=== PATIENT | male | born 1940 | race Caucasian/White ===

== ENCOUNTER 2016-06-10 13:30 | Emergency (ER) | payer MEDICARE, OTHER ==
[~2016-06-10] VITALS: Wt 86.4 kg
[2016-06-10 14:04] LABS: ADD SCAN DIFF NO
[2016-06-10 14:08] LABS: BASOPHILS % 0.2 % (0.0-2.0); EOSINOPHILS # 0.4 10^3/ul (0.0-0.5); EOSINOPHILS % 4.8 % (0.0-7.0); HEMATOCRIT 35.8 % (42.0-52.0); HEMOGLOBIN 11.9 g/dl (14.0-18.0); LYMPHOCYTES # 1.7 10^3/ul (0.8-2.9); LYMPHOCYTES % 20.5 % (15.0-51.0); MEAN CORPUSCULAR HEMOGLOBIN 31.8 pg (29.0-33.0); MEAN CORPUSCULAR HGB CONC 33.2 g/dl (32.0-37.0); MEAN CORPUSCULAR VOLUME 95.7 fl (82.0-101.0); MEAN PLATELET VOLUME 10.1 fl (7.4-10.4); MONOCYTE # 0.8 10^3/ul (0.3-0.9); MONOCYTES % 9.5 % (0.0-11.0); NEUTROPHIL # 5.2 10^3/ul (1.6-7.5); NEUTROPHILS % 64.5 % (39.0-77.0); PLATELET COUNT 215 10^3/UL (140-415); RED BLOOD COUNT 3.74 10^6/ul (4.70-6.10); RED CELL DISTRIBUTION WIDTH 14.3 % (11.5-14.5); WHITE BLOOD COUNT 8.1 10^3/ul (4.8-10.8)
[2016-06-10 14:19] LABS: ALBUMIN 3.8 g/dl (3.3-4.9); CHLORIDE 105 mmol/L (97-110)
--- NOTE | 2016-06-10 14:19 | RADRPT ---
PROCEDURE: XR Chest. CLINICAL INDICATION: Abdomen pain. TECHNIQUE: Single frontal view. COMPARISON: None. FINDINGS: There is mild linear atelectasis in the left mid and lower lung zones. The lungs are otherwise chanel r. The heart is enlarged. Calcification is present in the aorta consistent with atherosclerosis. Ther e are sternal wires and mediastinal clips. There is no pleural effusion. There is no pneumothorax. IMPRESSION: 1. Mild linear atelectasis in the left mid and lower lung zones. 2. Cardiomegaly and atherosclerosis. 3. Previous median sternotomy. 4. Otherwise normal chest x-ray. RPTAT: QQ .Orlin Kaba MD, MD Date Time Electronically viewed and signed by .Orlin Kaba MD, MD on 06/10/2016 14:19 .R/
[2016-06-10 14:20] LABS: POTASSIUM 3.9 mmol/L (3.5-5.1); SODIUM 140 mmol/L (135-144)
[2016-06-10 14:22] LABS: ALANINE AMINOTRANSFERASE 25 IU/L (13-69); ALBUMIN/GLOBULIN RATIO 1.35; ALKALINE PHOSPHATASE 103 IU/L (42-121); ANION GAP 16 (8-16); ASPARTATE AMINO TRANSFERASE 22 IU/L (15-46); BILIRUBIN,INDIRECT 0.4 mg/dl (0-1.1); BILIRUBIN,TOTAL 0.4 mg/dl (0.2-1.3); BLOOD UREA NITROGEN 22 mg/dl (7-20); CARBON DIOXIDE 23 mmol/L (21-31); CREATININE 1.14 mg/dl (0.61-1.24); GLUCOSE 130 mg/dl (70-220); TOTAL PROTEIN 6.6 g/dl (6.1-8.1)
[2016-06-10 14:23] LABS: CALCIUM 8.8 mg/dl (8.4-10.2)
[2016-06-10 14:31] LABS: B-TYPE NATRIURETIC PEPTIDE 314 PG/ML (0-450)
[2016-06-10 14:35] LABS: TROPONIN-I < 0.012 ng/ml (0.00-0.12)
[2016-06-10] MEDS ORDERED: SOD CHLORIDE 0.9% 500 ML IV ONE (15:00)
--- NOTE | 2016-06-10 15:01 | ERD ---
ER Documentation Chief Complaint Date/Time DATE: 06/10/16 TIME: 14:59 Chief Complaint BIB ALS CC SYNCOPAL EPISODE W + ORTHOSTATS HPI 75-year-old man brought in by EMS for near syncopal episode while exiting his vehicle. He was helped down to the ground and family members who are at his side state he did not lose full consciousness. They say he did take an extra dose of his antihypertensive medications last night and that he did experience a syncopal episode just 3 months ago and he was admitted and a full inpatient workup for 3 days was unremarkable. They also state the patient does not drink enough water during the day. Patient denies dysuria or increased urinary frequency. Patient denies recent opioid use, no fevers or chills, no chest pain or shortness of breath, no headache or blurry vision. Patient was transported here by EMS without further complications. ROS All systems reviewed and are negative except as per history of present illness. Medications Home Meds Reported Medications Lubiprostone* (Amitiza*) 24 Mcg Capsule, 24 MCG PO DAILY, #60 CAP 06/10/16 Gabapentin* (Gabapentin*) 100 Mg Capsule, 100 MG PO TID, #90 CAP 06/10/16 Doxazosin Mesylate* (Doxazosin Mesylate*) 4 Mg Tablet, 4 MG PO HS, TAB 06/10/16 Diclofenac Sodium* (Diclofenac Sodium*) 50 Mg Tablet.dr, 50 MG PO BID, #60 TAB 06/10/16 Atorvastatin* (Atorvastatin*) 80 Mg Tablet, 80 MG PO QHS, #30 TAB 06/10/16 Valsartan* (Diovan*) 160 Mg Tablet, 160 MG PO DAILY, TAB 06/10/16 Aspirin (Low Dose Aspirin) 81 Mg Tablet.dr, 81 MG PO DAILY, #30 TAB 06/10/16 Pantoprazole* (Protonix*) 40 Mg Tablet.dr, 40 MG PO DAILY, TAB 06/10/16 Folic Acid* (Folic Acid*) 1 Mg Tablet, 1 MG PO DAILY, TAB 06/10/16 Cyanocobalamin* (Vitamin B12*) 500 Mcg Tab, 1000 MCG PO DAILY, TAB 06/10/16 Amlodipine Besylate/Benazepril (Amlodipine-Benazepril 5-20 mg) 1 Each Capsule, 1 EACH PO DAILY, CAP 4/16/17 Ranolazine* (Ranexa*) 1,000 Mg Tab.sr.12h, 1000 MG PO Q12, TAB 06/10/16 Atenolol* (Atenolol*) 50 Mg Tablet, 50 MG PO DAILY, #30 TAB 06/10/16 Metformin Hcl* (Metformin Hcl*) 500 Mg Tablet, 500 MG PO WITH BREAKFAST DINNE, # 30 TAB 06/10/16 Prasugrel Hydrochloride* (Effient*) 10 Mg Tablet, 10 MG PO DAILY, TAB 06/10/16 Allergies Allergies: Coded Allergies: No Known Allergy (Unverified , 06/10/16) PMhx/Soc Obesity, hypertension, dyslipidemia, diabetes mellitus, coronary artery disease and peripheral vascular disease status post coronary artery stents History of Surgery: Yes (MULTIPLE BYPASS SX, MULTIPLE STENTS) Hx Miscellaneous Medical Probl: Yes (DM) Hx Alcohol Use: No Hx Substance Use: No Hx Tobacco Use: No Smoking Status: Unknown if ever smoked FmHx Family History: No diabetes Physical Exam Vitals Vital Signs Date Time Temp Pulse Resp B/P Pulse Ox O2 Delivery O2 Flow Rate FiO2 06/10/16 13:46 96.6 112 20 125/66 94 Physical Exam GENERAL: Well-developed, well-nourished, appears dehydrated, no apparent distress, afebrile HEENT: Dry mucous membranes, pink conjunctiva, no cervical spine tenderness or step-off deformities, no goiter, no jaundice or icterus, extraocular movements intact without pain. No submandibular induration, and no pharyngeal erythema NEURO: Alert and oriented 3, cranial nerves II through XII intact bilaterally, pupils equal round reactive to light, no focal deficits or facial asymmetry, sensation intact distally Strength 5/5 in upper and lower extremities bilaterally CARDIAC: Regular rate and rhythm, no murmurs rubs or gallops LUNGS: Clear bilaterally no wheezing crackles or stridor ABDOMEN: Soft nontender, no guarding, no rigidity, no rebound, no psoas sign no obturator sign. Normoactive bowel sounds SKIN: Warm and dry to touch, no abrasions, contusions, or hematomas, no lacerations, no ecchymosis, no target lesions, and without ulcers EXTREMITIES: No clubbing cyanosis, 2+ pitting edema in the lower extremities bilaterally, calves are bilaterally symmetrical, no Homans sign, no popliteal cord sign. Distal pulses equal and bilateral PSYCH: Normal affect without agitation or irritability Result Diagram: 06/10/16 1348 06/10/16 1348 Results 24 hrs Laboratory Tests Test 06/10/16 13:48 White Blood Count 8.110^3/ul Red Blood Count 3.7410^6/ul Hemoglobin 11.9g/dl Hematocrit 35.8% Mean Corpuscular Volume 95.7fl Mean Corpuscular Hemoglobin 31.8pg Mean Corpuscular Hemoglobin Concent 33.2g/dl Red Cell Distribution Width 14.3% Platelet Count 64451^3/UL Mean Platelet Volume 10.1fl Neutrophils % 64.5% Lymphocytes % 20.5% Monocytes % 9.5% Eosinophils % 4.8% Basophils % 0.2% Nucleated Red Blood Cells % 0.0/100WBC Neutrophils # 5.210^3/ul Lymphocytes # 1.710^3/ul Monocytes # 0.810^3/ul Eosinophils # 0.410^3/ul Basophils # 0.010^3/ul Nucleated Red Blood Cells # 0.010^3/ul Sodium Level 140mmol/L Potassium Level 3.9mmol/L Chloride Level 105mmol/L Carbon Dioxide Level 23mmol/L Anion Gap 16 Blood Urea Nitrogen 22mg/dl Creatinine 1.14mg/dl Glucose Level 130mg/dl Calcium Level 8.8mg/dl Total Bilirubin 0.4mg/dl Direct Bilirubin 0.00mg/dl Indirect Bilirubin 0.4mg/dl Aspartate Amino Transf (AST/SGOT) 22IU/L Alanine Aminotransferase (ALT/SGPT) 25IU/L Alkaline Phosphatase 103IU/L Troponin I < 0.012ng/ml B-Type Natriuretic Peptide 314PG/ML Total Protein 6.6g/dl Albumin 3.8g/dl Globulin 2.80g/dl Albumin/Globulin Ratio 1.35 Lipase 32U/L Current Medications Medications (Trade) Dose Ordered Sig/Dao Route PRN Reason Start Time Stop Time Status Last Admin Dose Admin Sodium Chloride (NS) 500 ml @ 500 mls/hr Q1H ONCE IV 06/10/16 15:00 06/10/16 15:59 06/10/16 14:55 Procedures/MDM IV line was established patient was placed on monitor tech rhythm strip revealed a sinus rhythm at about 60 bpm with upright P and T waves. Patient was afebrile. EKG performed, read by me revealed a normal sinus rhythm at 60 bpm, normal axis with a first-degree atrioventricular block and a MI interval of 232 ms and a left ventricular conduction delay with a QRS duration of 112 ms, no concerning ST elevations or depressions noted. One view chest x-ray performed, read by me there are sternotomy wires and cardiomegaly with atelectatic changes at the bases, no pulmonary edema, no acute infiltrates, no pneumothorax. CBC was unremarkable, electrolytes revealed dehydration with a BUN/creatinine of 22/1.1, liver function tests were normal, troponin was negative, BNP was low. I administered 500 cc of normal saline intravenously for dehydration. I also recommended the patient stay for inpatient management and offered admission to the patient and his family members were at the bedside, although after discussing it the preferred outpatient management because the exact same thing happened just a few months ago an inpatient management was unremarkable. I agree that serious underlying cardiac event today is unlikely and feel that he can be managed successfully as an outpatient. Differential diagnoses considered, included but not limited to acute coronary syndrome, pulmonary embolism, aortic dissection, abdominal aortic aneurysm, sepsis, stroke, meningitis, encephalitis, pneumonia, appendicitis, cholecystitis , bowel obstruction, pyelonephritis, nephrolithiasis, cystitis, as well as metabolic, hematologic, and electrolyte abnormalities. As well as abscess, cellulitis, fractures, and dislocations. Patient feels much better at this time, and vital signs are normal, symptoms have improved. I did give strict instructions to return to the ED if symptoms continue or worsen, patient will otherwise follow-up with primary care physician. Patient understood instructions and agreed to plan. Departure Diagnosis: Primary Impression: Syncope Syncope type: unspecified Qualified Code: R55 - Syncope, unspecified syncope type Additional Impressions: Dehydration Peripheral edema Condition: Good ALESHA KEEN MD Jun 10, 2016 15:01
[2016-06-10] MEDS ORDERED: PRAS10TA6 PO (15:06)
[2016-06-10] MEDS ORDERED: METF500T4 PO (15:07)
[2016-06-10] MEDS ORDERED: ATEN50TA PO (15:07)
[2016-06-10] MEDS ORDERED: RANO10002 PO (15:07)
[2016-06-10] MEDS ORDERED: AMLO1CAP10 PO (15:08)
[2016-06-10] MEDS ORDERED: CYAN500T46 PO (15:09)
[2016-06-10] MEDS ORDERED: FOLI-49 PO (15:09)
[2016-06-10] MEDS ORDERED: PANT40TA3 PO (15:10)
[2016-06-10] MEDS ORDERED: ASPI-664 PO (15:10)
[2016-06-10] MEDS ORDERED: VALS160T20 PO (15:12)
[2016-06-10] MEDS ORDERED: ATOR80TA75 PO (15:39)
[2016-06-10] MEDS ORDERED: GABA100C14 PO (15:40)
[2016-06-10] MEDS ORDERED: DICL50TA11 PO (15:40)
[2016-06-10] MEDS ORDERED: DOXA4TAB3 PO (15:40)
[2016-06-10] MEDS ORDERED: LUBI24CA7 PO (15:42)
[2016-06-10 15:56] VITALS: BP 131/67; PULSE 70; RESP 16
== END 2016-06-10 15:57 | disposition home or self-care (01) ==
LOC: E/R 13:30
DX: R55 Syncope and collapse (principal); R60.0 Localized edema; E86.0 Dehydration; I10 Essential (primary) hypertension; E66.9 Obesity, unspecified; I25.10 Atherosclerotic heart disease of native coronary artery without angina pectoris; Z79.82 Long term (current) use of aspirin; Z79.84 Long term (current) use of oral hypoglycemic drugs; Z98.61 Coronary angioplasty status
CPT/HCPCS: 36415; 71010; 80053; 83690; 83880; 84484; 85025; 93005; 96360